=== PATIENT | female | born 1990 | race Caucasian/White ===

== ENCOUNTER 2018-02-19 19:01 | Emergency (ER) | payer BC, MEDICAID, OTHER ==
--- NOTE | 2018-02-19 19:12 | EDM.PDOC ---
ED HPI GENERAL MEDICAL PROBLEM - General Chief Complaint: ENT Problem Stated Complaint: POSSIBLE STREP Time Seen by Provider: 02/19/18 19:11 - History of Present Illness INITIAL COMMENTS - FREE TEXT/NARRATIVE: 27-year-old female presents emergency room sore throat and she thinks it strep. This is been going on for last 2 or 3 days she had fevers initially she noted some white spots in the back of her throat. Patient has not any chest pain chest pressure breathing difficulty shortness of breath no abdominal pain no nausea vomiting constipation or diarrhea. Patient thinks her last bout of strep was nearly 3 years ago. Throat Pain Score (Numeric/FACES): 8 - Related Data Allergies Allergy/AdvReac Type Severity Reaction Status Date / Time No Known Allergies Allergy Verified 03/08/17 05:39 CDT Home Meds: Home Meds . 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: Social & Family History - Family History Family Medical History: Noncontributory - Caffeine Use Caffeine Use: Reports: Coffee, Soda ED ROS ENT - Review of Systems Review Of Systems: See Below Constitutional: Reports: Fever HEENT: Reports: Throat Pain Respiratory: Reports: No Symptoms Cardiovascular: Reports: No Symptoms GI/Abdominal: Reports: No Symptoms : Reports: No Symptoms Musculoskeletal: Reports: No Symptoms Skin: Reports: No Symptoms ED EXAM, ENT - Physical Exam Exam: See Below General Appearance: Alert, No Apparent Distress Ears: Normal External Exam, Normal Canal, Hearing Grossly Normal, Normal TMs Nose: Normal Inspection, Normal Mucousa, No Blood Mouth/Throat: Normal Inspection, Normal Gums, Normal Lips, Normal Oropharynx, Normal Teeth Head: Atraumatic, Normocephalic Neck: Normal Inspection, Supple, Non-Tender, Full Range of Motion Respiratory/Chest: No Respiratory Distress, Lungs Clear, Normal Breath Sounds, No Accessory Muscle Use, Chest Non-Tender Cardiovascular: Normal Peripheral Pulses, Regular Rate, Rhythm, No Edema, No Gallop, No JVD, No Murmur, No Rub GI/Abdominal: Normal Bowel Sounds, Soft, Non-Tender, No Organomegaly, No Distention, No Abnormal Bruit, No Mass Back: Normal Inspection. No: CVA Tenderness (L), CVA Tenderness (R) Extremities: Normal Inspection. No: Pedal Edema Neurological: Alert, Oriented, Normal Cognition Course - Vital Signs Last Recorded V/S: Last Vital Signs Temp 36.6 C 02/19/18 19:16 Pulse 82 02/19/18 19:16 Resp 20 02/19/18 19:16 BP 139/91 H 02/19/18 19:16 Pulse Ox 97 02/19/18 19:16 - Orders/Labs/Meds Orders: Active Orders 24 hr Category Date Time Status CULTURE STREP A CONFIRMATION [RM] Stat Lab 02/19/18 19:21 Results STREP SCRN A RAPID W CULT CONF [RM] Stat Lab 02/19/18 19:21 Results - Re-Assessments/Exams Free Text/Narrative Re-Assessment/Exam: 02/19/18 20:31 Rapid strep negative confirmatory culture pending Departure - Departure Time of Disposition: 20:31 Disposition: Home, Self-Care 01 Clinical Impression: Pharyngitis - Discharge Information Referrals: PCP,None [Primary Care Provider] - Forms: ED Department Discharge Additional Instructions: Return to emergency room if any questions problems worsening symptoms. At this point the rapid strep is negative confirmatory culture is pending. As we discussed try sugar-free hard candies or [id number] for relief preparations the final culture results should be back within 2 days. Follow-up with your regular doctor on Tuesday if needed. Tylenol and/or Motrin as needed for discomfort and fever - My Orders Last 24 Hours: My Active Orders 02/19/18 19:21 CULTURE STREP A CONFIRMATION [RM] Stat STREP SCRN A RAPID W CULT CONF [RM] Stat - Assessment/Plan Last 24 Hours: My Active Orders 02/19/18 19:21 CULTURE STREP A CONFIRMATION [RM] Stat STREP SCRN A RAPID W CULT CONF [RM] Stat
[2018-02-19 19:24] VITALS: BP 139/91
== END 2018-02-19 20:50 | disposition home or self-care (01) ==
LOC: JD.ED 19:01
DX: J02.9 Acute pharyngitis, unspecified (principal)
CPT/HCPCS: 87081; 87430; 99282; 99283